=== PATIENT | female | born 1950 | race Caucasian/White ===

== ENCOUNTER 2019-01-15 20:22 | Emergency (ER) | payer MEDICARE ==
[2019-01-15] MEDS ORDERED: ASPIRIN 81 MG TABLET, CHEWABLE PO ONE (21:22)
[2019-01-15 21:55] LABS: ABSOLUTE BASOPHILS # (AUTO) 0.1 10^3/uL (0.0-0.2); ABSOLUTE EOSINOPHILS # (AUTO) 0.3 10^3/uL (0.0-0.6); ABSOLUTE MONOCYTES (AUTO) 0.5 10^3/uL (0.1-1.4); ABSOLUTE NEUT (AUTO) 4.3 10^3/uL (1.7-8.2); BASOPHILS % (AUTO) 0.7 % (0-2); EOSINOPHILS % (AUTO) 3.8 % (0-6); HEMATOCRIT 41.4 % (36.0-47.0); HEMOGLOBIN 13.8 g/dL (12.0-15.5); LYMPHOCYTES % (AUTO) 27.9 % (13-45); MEAN CORPUSCULAR HEMOGLOBIN 28.9 pg (27.0-33.4); MEAN CORPUSCULAR HGB CONC 33.4 g/dL (32.0-36.0); MEAN CORPUSCULAR VOLUME 86 fl (80-97); MONOCYTES % (AUTO) 7.1 % (3-13); PLATELET COUNT 174 10^3/uL (150-450); RED BLOOD COUNT 4.79 10^6/uL (3.72-5.28); SEGMENTED NEUTROPHILS % (AUTO) 60.5 % (42-78); TOTAL CELLS COUNTED % (AUTO) 100 %; WHITE BLOOD COUNT 7.1 10^3/uL (4.0-10.5)
[2019-01-15 22:01] LABS: APPEARANCE,URINE SLIGHTLY-CLOUDY; BILIRUBIN,URINE NEGATIVE (NEGATIVE); COLOR,URINE YELLOW; GLUCOSE, URINE >=500 mg/dL (NEGATIVE); KETONES,URINE NEGATIVE (NEGATIVE); LEUKOCYTE ESTERASE,URINE NEGATIVE (NEGATIVE); NITRITE,URINE NEGATIVE (NEGATIVE); PROTEIN,URINE NEGATIVE (NEGATIVE); URINE SPECIFIC GRAVITY 1.016
--- NOTE | 2019-01-15 22:22 | RADIOLOGY REPORT (SQ) ---
EXAM DESCRIPTION: XR CHEST 2 VIEWS COMPLETED DATE/TME: 01/15/2019 21:21 CLINICAL HISTORY: 68 years, Female, pain numbness right arm COMPARISON: None. NUMBER OF VIEWS: 2 TECHNIQUE: 2 view chest LIMITATIONS: None. FINDINGS: Heart size normal. Lungs clear. No pneumothorax. Underlying hyperinflation IMPRESSION: Hyperinflation/COPD copyright 2010 [employer]- All Rights Reserved
[2019-01-15 22:32] LABS: ALKALINE PHOSPHATASE 74 U/L (38-126); ANION GAP 8 (5-19); ASPARTATE AMINO TRANSFERASE 19 U/L (14-36); BILIRUBIN,DIRECT 0.3 mg/dL (0.0-0.4); BILIRUBIN,TOTAL 0.6 mg/dL (0.2-1.3); BLOOD UREA NITROGEN 18 mg/dL (7-20); CALCIUM 9.8 mg/dL (8.4-10.2); CARBON DIOXIDE 27 mmol/L (22-30); CHLORIDE 104 mmol/L (98-107); CREATINE KINASE 31 U/L (30-135); GLUCOSE 224 mg/dL (75-110); POTASSIUM 4.4 mmol/L (3.6-5.0); TOTAL PROTEIN 6.7 g/dL (6.3-8.2)
[2019-01-15 22:45] LABS: CREATINE KINASE MB < 0.22 ng/mL (<4.55); TROPONIN I < 0.012 ng/mL
[2019-01-16 01:28] VITALS: BP 151/63
[2019-01-16] MEDS ORDERED: HYDROCODONE/ACETAMINOPHEN 5-325 MG TABLET PO ONE (02:12)
[2019-01-16] MEDS ORDERED: DIAZEPAM 5 MG TABLET PO ONE (02:20)
--- NOTE | 2019-01-16 02:20 | ER Document Report ---
ED General - General Chief Complaint: Arm Pain Stated Complaint: NECK AND ARM PAIN Time Seen by Provider: 01/15/19 21:20 Primary Care Provider: MAIKEL MADRIGAL NP [Primary Care Provider] - Follow up as needed Mode of Arrival: Ambulatory Information source: Patient, Relative, [facility] Records Notes: 68-year-old female with congestive heart failure, hyperlipidemia, hypertension, type 2 diabetes presents with right arm pain that started at 8 AM. Patient states that she has had a continuous aching pain in her right shoulder that radiates to her right trapezius. Pain is worse with movement. She denies any injury. She denies any associated chest pain, shortness of breath, nausea. She states when the pain became bad she did become nauseous. She does have a history of cardiac stent placement approximately 10 years ago. She does take aspirin daily. She denies any recent illness. - HPI Onset: This morning Onset/Duration: Gradual, Constant, Persistent Quality of pain: Achy Severity: Moderate Pain Level: 2 Associated symptoms: Sweating. denies: Chest pain, Nonproductive cough, Productive cough, Fever, Headache, Leg swelling, Nausea, Vomiting, Shortness of breath Exacerbated by: Movement Relieved by: Remaining still Similar symptoms previously: No Recently seen / treated by doctor: No - Related Data Allergies/Adverse Reactions: penicillin V potassium [From Pen-Vee K] Allergy (Intermediate, Verified 05/21/11 21:58) resp distress Past Medical History - General Information source: Patient - Social History Smoking Status: Never Smoker Chew tobacco use (# tins/day): No Frequency of alcohol use: None Drug Abuse: None Lives with: Family Family History: Reviewed & Not Pertinent Patient has suicidal ideation: No Patient has homicidal ideation: No - Past Medical History Cardiac Medical History: Reports: Hx Congestive Heart Failure, Hx Hypercholesterolemia, Hx Hypertension Endocrine Medical History: Reports: Hx Diabetes Mellitus Type 2 Past Surgical History: Reports: Hx Cardiac Surgery - stent placed, Hx Cholecystectomy, Hx Tonsillectomy - Immunizations Hx Diphtheria, Pertussis, Tetanus Vaccination: Yes Review of Systems - Review of Systems Notes: REVIEW OF SYSTEMS: CONSTITUTIONAL : Denies fever, chills,. Denies recent illness. Denies weight loss, recent hospitalizations. EENT: Denies visual changes, eye pain. Denies sore throat, oral lesions, diff iculty swallowing. CARDIOVASCULAR: Denies chest pain. Denies palpitations. Denies lower extremity edema. RESPIRATORY: Denies cough. Denies shortness of breath, wheezing. GASTROINTESTINAL: Denies abdominal pain or distention. Denies nausea, vomiting, or diarrhea. Denies blood in vomitus, stools, or per rectum. Denies black, tarry stools. Denies constipation. GENITOURINARY: Denies difficulty urinating, painful urination, frequency, blood in urine, or vaginal discharge. MUSCULOSKELETAL: Denies back stiffness. + joint pain denies swelling. SKIN: Denies rash, lesions or sores. HEMATOLOGIC : Denies easy bruising or bleeding. LYMPHATIC: Denies swollen glands. NEUROLOGICAL: Denies confusion or altered mental status. Denies loss of consciousness. Denies dizziness or lightheadedness. Denies headache. Denies weakness or paralysis. Denies problems difficulty with ambulation, slurred speech. Denies sensory loss, numbness, or tingling. Denies seizures. PSYCHIATRIC: Denies anxiety or stress. Denies depression, suicidal ideation, or homicidal ideation. Denies visual or auditory hallucinations. Physical Exam - Vital signs Vitals: Temp Pulse Resp BP Pulse Ox 98.4 F 53 L 18 179/78 H 97 01/15/19 20:39 01/15/19 20:39 01/15/19 20:39 01/15/19 20:39 01/15/19 20:39 - Notes Notes: PHYSICAL EXAMINATION: GENERAL: Well-appearing, well-nourished and in no acute distress. HEAD: Atraumatic, normocephalic. EYES: Pupils equal round and reactive to light, extraocular movements intact, conjunctiva are normal. ENT: Nares patent, oropharynx clear without exudates. Moist mucous membranes. NECK: Normal range of motion, supple without lymphadenopathy LUNGS: Breath sounds clear to auscultation bilaterally and equal. No wheezes rales or rhonchi. HEART: Regular rate and rhythm without murmurs ABDOMEN: Soft, nontender, nondistended abdomen. No guarding, no rebound. No masses appreciated. Female : deferred Musculoskeletal: Normal range of motion, no pitting or edema. No cyanosis. NEUROLOGICAL: Cranial nerves grossly intact. Normal speech, normal gait. Normal sensory, motor exams PSYCH: Normal mood, normal affect. SKIN: Warm, Dry, normal turgor, no rashes or lesions noted. Course - Re-evaluation Re-evalutation: 01/16/19 02:15 Laboratory 01/15/19 01/15/19 01/15/19 21:22 21:22 21:22 WBC 7.1 RBC 4.79 Hgb 13.8 Hct 41.4 MCV 86 MCH 28.9 MCHC 33.4 RDW 15.0 H Plt Count 174 Lymph % (Auto) 27.9 [place] % (Auto) 7.1 Eos % (Auto) 3.8 Baso % (Auto) 0.7 Absolute Neuts (auto) 4.3 Absolute Lymphs (auto) 2.0 Absolute Monos (auto) 0.5 Absolute Eos (auto) 0.3 Absolute Basos (auto) 0.1 Seg Neutrophils % 60.5 Sodium 139.1 Potassium 4.4 Chloride 104 Carbon Dioxide 27 Anion Gap 8 BUN 18 Creatinine 1.02 Est GFR ( Amer) > 60 Est GFR (MDRD) Non-Af 54 L Glucose 224 H Calcium 9.8 Total Bilirubin 0.6 Direct Bilirubin 0.3 Neonat Total Bilirubin Not Reportable Neonat Direct Bilirubin Not Reportable Neonat Indirect Bili Not Reportable AST 19 ALT 14 Alkaline Phosphatase 74 Creatine Kinase 31 CK-MB (CK-2) < 0.22 Troponin I < 0.012 Total Protein 6.7 Albumin 4.0 Urine Color Urine Appearance Urine pH Ur Specific [place] Urine Protein Urine Glucose (UA) Urine Ketones Urine Blood Urine Nitrite Urine Bilirubin Urine Urobilinogen Ur Leukocyte Esterase Urine WBC (Auto) Urine RBC (Auto) Urine Bacteria (Auto) Squamous Epi Cells Auto Urine Ascorbic Acid 01/15/19 21:22 WBC RBC Hgb Hct MCV MCH MCHC RDW Plt Count Lymph % (Auto) [place] % (Auto) Eos % (Auto) Baso % (Auto) Absolute Neuts (auto) Absolute Lymphs (auto) Absolute Monos (auto) Absolute Eos (auto) Absolute Basos (auto) Seg Neutrophils % Sodium Potassium Chloride Carbon Dioxide Anion Gap BUN Creatinine Est GFR ( Amer) Est GFR (MDRD) Non-Af Glucose Calcium Total Bilirubin Direct Bilirubin Neonat Total Bilirubin Neonat Direct Bilirubin Neonat Indirect Bili AST ALT Alkaline Phosphatase Creatine Kinase CK-MB (CK-2) Troponin I Total Protein Albumin Urine Color YELLOW Urine Appearance SLIGHTLY-CLOUDY Urine pH 5.0 Ur Specific [place] 1.016 Urine Protein NEGATIVE Urine Glucose (UA) >=500 H Urine Ketones NEGATIVE Urine Blood NEGATIVE Urine Nitrite NEGATIVE Urine Bilirubin NEGATIVE Urine Urobilinogen 2.0 H Ur Leukocyte Esterase NEGATIVE Urine WBC (Auto) 1 Urine RBC (Auto) 0 Urine Bacteria (Auto) TRACE Squamous Epi Cells Auto 5 Urine Ascorbic Acid NEGATIVE Chest X-Ray 01/15/19 21:21 IMPRESSION: Hyperinflation/COPD copyright 2011 [employer]- All Rights Reserved Temp Pulse Resp BP Pulse Ox 97.6 F 49 L 18 151/63 H 98 01/16/19 00:50 01/16/19 01:24 01/16/19 01:24 01/16/19 01:24 01/16/19 01:24 Presentation of chest pain in an otherwise well appearing patient. Low clinical suspicion for ACS given clinical history, exam, EKG without ST elevations or depressions, and negative initial troponin. HEART score less than or equal to 3. PE also seems unlikely given clinical history, absence of tachycardia or dyspnea. Patient is PERC criteria negative. CXR without evidence of pneumothorax or pneumonia. No widened mediastinum. Aortic dissection also seems unlikely given history, symmetric pulses, CXR, and vitals. I did discuss delta troponin with the patient and her daughter who are declining at this time. Patient did receive Coello for her right shoulder pain. She does have increased tenacity of the right trapezius and tenderness with palpation. HEART Score: History-0 ECG-0 Age-1 Risk Factors-2 Troponin-0 Total: 3 Chest pain in a patient without evidence of cardiac or other serious etiology on workup today. I discussed with patient that, based on their age, risk factors an d emergency department testing today, the likelihood that their symptoms are related to a heart attack is very low (estimated risk of heart attack or over the next 30 days of less than 1%). The patient demonstrates decision making capacity and has verbalized an understanding of these risks to me. Based on this, the patient has chosen to follow-up as an outpatient. Usual chest pain return precautions reviewed. The patient states understanding and agreement with this plan. 01/16/19 02:16 - Vital Signs Vital signs: Temp Pulse Resp BP Pulse Ox 97.6 F 49 L 18 151/63 H 98 01/16/19 00:50 01/16/19 01:24 01/16/19 01:24 01/16/19 01:24 01/16/19 01:24 - Laboratory Result Diagrams: 01/15/19 21:22 01/15/19 21:22 Laboratory results interpreted by me: 01/15/19 01/15/19 01/15/19 21:22 21:22 21:22 RDW 15.0 H Est GFR (MDRD) Non-Af 54 L Glucose 224 H Urine Glucose (UA) >=500 H Urine Urobilinogen 2.0 H - Diagnostic Test Radiology reviewed: Image reviewed, Reports reviewed - EKG Interpretation by Me EKG shows normal: Sinus rhythm Rate: Normal [place]/QRS: RBBB Voltage: Consistant with LVH When compared to previous EKG there are: Previous EKG unavailable Discharge - Discharge Clinical Impression: Medication refill Shoulder pain Qualifiers: Chronicity: acute Laterality: right Qualified Code(s): M25.511 - Pain in right shoulder Cervical strain Qualifiers: Encounter type: initial encounter Qualified Code(s): S16.1XXA - Strain of muscle, fascia and tendon at neck level, initial encounter Condition: Good Disposition: HOME, SELF-CARE Instructions: Arm Pain, Nonspecific ([facility]), Neck Injury (Cervical Strain) ([facility]) Additional Instructions: You were seen today for arm pain. The exact cause of your pain is unclear. However, based on your cardiac enzyme testing, chest x-ray, and EKG it does not appear that it is from an immediately life-threatening cause at this time. Although your testing here is normal is critical that you follow-up with your primary care physician for continued evaluation of this chest pain and possible stress testing. I recommended you see your physician within the next 24-48 hours to be evaluated for consideration of a stress test. Please return to emergency department immediately if you have worsening of your chest pain, shortness of breath, vomiting, become unable to exert yourself due to pain or difficulty breathing, you pass out, or have any pain that radiates into your arms, jaw, or back. Please also return if you have any additional symptoms that are concerning to you. Recommendations: It is recommended to followup with a primary care doctor within the next 2 days. If you do not have a primary care doctor or you are unable to get an apointment during that time, I left the number for some internal medicine physicians that are affiliated with this [facility]. Dr. Ryan Panda [address], [place] [phone] Figueroa Address: [address] [place] [address] Dr Quick Address: [address] , [place] [address] Follow up with your [id number] hours for further care or return to the ED IMMEDIATELY if symptoms worsen or you have any concerns. If you cannot afford to follow up with your primary care physician a list of low cost clinics have been provided at the end of your discharge papers as well. Most prescribed medications have multiple side effects. The safest thing to do is when filling your prescription speak to your pharmacist regarding possible interactions with your normal home medications and over the counter medications such as Ibuprofen, Tylenol, Benadryl. If you experience any symptoms that cause you discomfort or concern you should discontinue the medication immediately and return to the emergency room or call your primary care physician. Prescriptions: Olmesartan/Hydrochlorothiazide [Benicar Hct 40-12.5 mg Tablet] 1 each PO DAILY #30 tablet Insulin Glargine,Hum.rec.anlog [Lantus Insulin 100 Unit/1 ml 10 ml] 70 unit SUBCUT BID #5 vial Metoprolol Succinate [Toprol Xl 50 mg Tab.sr] 50 mg PO DAILY #30 tab.sr.24h Referrals: MAIKEL MADRIGAL, TONY [Primary Care Provider] - Follow up as needed
--- NOTE | 2019-01-16 19:07 | EKG REPORT ---
SEVERITY:- ABNORMAL ECG - SINUS RHYTHM RIGHT BUNDLE BRANCH BLOCK PROBABLE LEFT VENTRICULAR HYPERTROPHY : Confirmed by: Lazaro Hickey 16-Jan-2019 19:07:18
== END 2019-01-16 03:59 | disposition home or self-care (01) ==
LOC: ER 20:22
DX: M25.511 Pain in right shoulder (principal); S16.1XXA Strain of muscle, fascia and tendon at neck level, initial encounter; X58.XXXA Exposure to other specified factors, initial encounter; M79.601 Pain in right arm; R61 Generalized hyperhidrosis; I10 Essential (primary) hypertension; E11.9 Type 2 diabetes mellitus without complications; J44.9 Chronic obstructive pulmonary disease, unspecified; I45.10 Unspecified right bundle-branch block; Z76.0 Encounter for issue of repeat prescription; Z79.82 Long term (current) use of aspirin; Z88.0 Allergy status to penicillin; Z95.5 Presence of coronary angioplasty implant and graft
CPT/HCPCS: 93005; 99284; 36415; 82553; 82550; 85025; 80053; 81001; 84484; 71046; 93010; A9270 ×3

== ENCOUNTER 2019-04-27 09:31 | Emergency (ER) | payer MEDICARE ==
[2019-04-27] MEDS ORDERED: NYSTATIN/TRIAMCIN OINTMENT 15 GM TP ONE (10:11)
--- NOTE | 2019-04-27 10:11 | ER Document Report ---
ED Medical Screen (RME) - General Chief Complaint: Cough Stated Complaint: COUGH/POSSIBLE UTI Time Seen by Provider: 04/27/19 10:09 Primary Care Provider: MAIKEL MADRIGAL NP [Primary Care Provider] - Follow up as needed Mode of Arrival: Ambulatory Information source: Patient Notes: 68-year-old female presents to ED for urinary tract infection symptoms frequency urgency burning and burning rash under both breast. Will order some Mycolog cream for the breast at this time ordered a urine get some blood work as she is diabetic. Her sugars have been running in the 180s even taking her medications. Patient is alert oriented respirations regular nonlabored speaking in full sentences. I have greeted and performed a rapid initial assessment of this patient. A comprehensive ED assessment and evaluation of the patient, analysis of test results and completion of medical decision making process will be conducted by an additional ED providers. - Related Data Allergies/Adverse Reactions: penicillin V potassium [From Pen-Vee K] Allergy (Intermediate, Verified 04/27/19 10:04) resp distress Past Medical History - Past Medical History Cardiac Medical History: Reports: Hx Congestive Heart Failure, Hx Hypercholesterolemia, Hx Hypertension Endocrine Medical History: Reports: Hx Diabetes Mellitus Type 2 Past Surgical History: Reports: Hx Cardiac Surgery - stent placed, Hx Cholecystectomy, Hx Tonsillectomy - Immunizations Hx Diphtheria, Pertussis, Tetanus Vaccination: Yes Physical Exam - Vital signs Vitals: Temp Pulse Resp BP Pulse Ox 98.0 F 82 16 154/72 H 96 04/27/19 09:40 04/27/19 09:40 04/27/19 09:40 04/27/19 09:40 04/27/19 09:40 Course - Vital Signs Vital signs: Temp Pulse Resp BP Pulse Ox 98.0 F 82 16 154/72 H 96 04/27/19 09:40 04/27/19 09:40 04/27/19 09:40 04/27/19 09:40 04/27/19 09:40 Doctor's Discharge - Discharge Referrals: MAIKEL MADRIGAL NP [Primary Care Provider] - Follow up as needed
[2019-04-27 10:47] LABS: APPEARANCE,URINE CLOUDY; BILIRUBIN,URINE NEGATIVE (NEGATIVE); GLUCOSE, URINE 50 mg/dL (NEGATIVE); KETONES,URINE TRACE mg/dL (NEGATIVE); PROTEIN,URINE 30 mg/dL (NEGATIVE); URINE SPECIFIC GRAVITY 1.018; UROBILINOGEN,URINE NEGATIVE mg/dL (<2.0)
[2019-04-27 10:50] LABS: COLOR,URINE DARK YELLOW
[2019-04-27 10:50] LABS: ABSOLUTE EOSINOPHILS # (AUTO) 0.1 10^3/uL (0.0-0.6); ABSOLUTE LYMPHOCYTES (AUTO) 1.3 10^3/uL (0.5-4.7); ABSOLUTE MONOCYTES (AUTO) 0.5 10^3/uL (0.1-1.4); ABSOLUTE NEUT (AUTO) 5.2 10^3/uL (1.7-8.2); BASOPHILS % (AUTO) 0.4 % (0-2); EOSINOPHILS % (AUTO) 0.8 % (0-6); HEMATOCRIT 40.7 % (36.0-47.0); HEMOGLOBIN 13.7 g/dL (12.0-15.5); LYMPHOCYTES % (AUTO) 18.3 % (13-45); MEAN CORPUSCULAR HEMOGLOBIN 28.6 pg (27.0-33.4); MEAN CORPUSCULAR HGB CONC 33.6 g/dL (32.0-36.0); MEAN CORPUSCULAR VOLUME 85 fl (80-97); MONOCYTES % (AUTO) 7.7 % (3-13); PLATELET COUNT 166 10^3/uL (150-450); RED BLOOD COUNT 4.78 10^6/uL (3.72-5.28); RED CELL DISTRIBUTION WIDTH 14.7 % (11.5-14.0); SEGMENTED NEUTROPHILS % (AUTO) 72.8 % (42-78); TOTAL CELLS COUNTED % (AUTO) 100 %; WHITE BLOOD COUNT 7.2 10^3/uL (4.0-10.5)
[2019-04-27 11:09] LABS: ALKALINE PHOSPHATASE 78 U/L (38-126); ANION GAP 10 (5-19); ASPARTATE AMINO TRANSFERASE 20 U/L (14-36); BILIRUBIN,DIRECT 0.2 mg/dL (0.0-0.4); BILIRUBIN,TOTAL 1.4 mg/dL (0.2-1.3); BLOOD UREA NITROGEN 26 mg/dL (7-20); CALCIUM 9.4 mg/dL (8.4-10.2); CARBON DIOXIDE 29 mmol/L (22-30); CHLORIDE 98 mmol/L (98-107); GLUCOSE 159 mg/dL (75-110); POTASSIUM 4.3 mmol/L (3.6-5.0); TOTAL PROTEIN 7.3 g/dL (6.3-8.2)
[2019-04-27] MEDS ORDERED: NYSTATIN TOPICAL POWDER 15 GM TP ONE (11:09)
[2019-04-27] MEDS ORDERED: CEFTRIAXONE 1 GM/D5W RTU 1 GM/50 ML RTUPB IV ONE (11:10)
[2019-04-27] MEDS ORDERED: FLUCONAZOLE 100 MG TABLET PO ONE (11:10)
--- NOTE | 2019-04-27 11:11 | ER Document Report ---
ED GI/ - General Chief Complaint: Vaginal Discharge Stated Complaint: COUGH/POSSIBLE UTI Time Seen by Provider: 04/27/19 10:09 Primary Care Provider: MAIKEL MADRIGAL, TONY [ALLIED HEALTH PROFESSIONAL] - Follow up as needed Mode of Arrival: Ambulatory Notes: Ms. Bhatia is a 68-year-old female with past medical history of hypertension, hyperlipidemia, and diabetes presenting to the ED for a rash underneath her breast as well as a vaginal rash. Patient states that she thought that she had a yeast infection so she has been using [id number] cold Metrazol cream without any relief. She also believes that she is developing a urinary tract infection as within the past day or 2 she started having burning with urination and increased frequency. Patient states that she became concerned when her underside of the left breast became red, erythematous and somewhat tender to palpation. The right breast underside just became erythematous this morning. Patient states that her glucoses have been running well recently ranging from 150-200. She denies any fever, chills, chest pain, cough, abdominal pain, vomiting or diarrhea. - Related Data Allergies/Adverse Reactions: penicillin V potassium [From Pen-[employer]] Allergy (Intermediate, Verified 04/27/19 10:04) resp distress Past Medical History - General Information source: Patient - Social History Smoking Status: Never Smoker Family History: Reviewed & Not Pertinent Patient has suicidal ideation: No Patient has homicidal ideation: No - Past Medical History Cardiac Medical History: Reports: Hx Congestive Heart Failure, Hx Hypercholesterolemia, Hx Hypertension Endocrine Medical History: Reports: Hx Diabetes Mellitus Type 2 Past Surgical History: Reports: Hx Cardiac Surgery - stent placed, Hx Cholecystectomy, Hx Tonsillectomy - Immunizations Hx Diphtheria, Pertussis, Tetanus Vaccination: Yes Review of Systems - Review of Systems Constitutional: See HPI EENT: No symptoms reported Cardiovascular: No symptoms reported Respiratory: No symptoms reported Gastrointestinal: No symptoms reported Genitourinary: See HPI Female Genitourinary: No symptoms reported Musculoskeletal: No symptoms reported Skin: See HPI Hematologic/Lymphatic: No symptoms reported Neurological/Psychological: No symptoms reported Physical Exam - Vital signs Vitals: Temp Pulse Resp BP Pulse Ox 98.0 F 82 16 154/72 H 96 04/27/19 09:40 04/27/19 09:40 04/27/19 09:40 04/27/19 09:40 04/27/19 09:40 Interpretation: Hypertensive - General General appearance: Appears well, Alert - HEENT Head: Normocephalic, Atraumatic Eyes: Normal Pupils: PERRL - Respiratory Respiratory status: No respiratory distress Chest status: Nontender Breath sounds: Normal Chest palpation: Normal - Cardiovascular Rhythm: Regular Heart sounds: Normal auscultation Murmur: No - Abdominal Inspection: Normal Distension: No distension Bowel sounds: Normal Tenderness: Nontender Organomegaly: No organomegaly - Back Back: Normal, Nontender - Extremities General upper extremity: Normal inspection, Nontender, Normal color, Normal ROM, Normal temperature General lower extremity: Normal inspection, Nontender, Normal color, Normal ROM, Normal temperature, Normal weight bearing. No: Neela's sign - Neurological Neuro grossly intact: Yes Cognition: Normal Orientation: AAOx4 [place] Coma Scale Eye Opening: Spontaneous [place] Coma Scale Verbal: Oriented [place] Coma Scale Motor: Obeys Commands Jo[place]quin Coma Scale Total: 15 Speech: Normal Motor strength normal: LUE, RUE, LLE, RLE Sensory: Normal - Psychological Associated symptoms: Normal affect, Normal mood - Skin Skin Temperature: Warm Skin Moisture: Dry Skin Color: Normal Skin irregularity: Erythema, Rash Location of irregularity: Chest - Underside of both breasts, worse under her left breast in comparison to the right. Rash is erythematous, moist, tender to palpation, with foul smell., Other - Entire groin underneath the pannus, between bilateral thighs and external vulva is erythematous, foul-smelling with moist yellow/green cheesy discharge Character of irregularity: Confluent, Erythematous Irregularity with: Tenderness Course - Re-evaluation Re-evalutation: Patient is uncomfortable appearing but nontoxic. Initial vitals notable for mildly elevated blood pressure. Differential diagnosis includes UTI, yeast infection, superficial candidiasis of the skin, cellulitis seems less likely) 04/27/19 11:21 Patient has extensive yeast infection both underneath the left breast, mildly developing under the right breast and extensively in the groin. Will administer nystatin powder to help dry out the rash after appropriately cleansing it with moist towelettes and allowing the area to dry. Patient will also be given Diflucan p.o. given the severity of rash. 04/27/19 11:28 CBC does not show significant leukocytosis or left shift. H&H is stable. CMP shows creatinine of 1.71 with a BUN of 26 consistent with dehydration. GFR is low today at 30. Glucose is stable at 159. Total bili is mildly elevated at 1.4. UA is consistent with a significant UTI positive for both leukocyte esterase and nitrites with greater than 182 WBCs and only 5 squamous cells. Patient ordered for ceftriaxone as well as 1 L of fluids which will be administered slowly. 04/27/19 16:33 Patient now mentions that she has had nasal stuffiness, sneezing and cough. Will obtain x-ray as well as flu swab. She did indicate that she got a flu vaccine for all months ago. Patient has small amount of expiratory wheezes and a nonproductive dry cough in the room. Will give DuoNeb. Influenza a and B are both negative. Chest x-ray shows evidence of COPD exacerbation. Patient is a remote smoker. Patient felt improved after duo nebs. Given Solu-Medrol as well. Patient will be discharged with prednisone p.o. patient recommended to continue using the nystatin powder as an outpatient. She was also provided with the remaining course of Keflex after the ceftriaxone for her UTI. Patient recommended she use the Diflucan again at the end of her Keflex but she was provided with several days. Patient given return precautions and instructed to try to keep the groin and area underneath the breast dry as well as possible to avoid these infection from worsening. - Vital Signs Vital signs: Temp Pulse Resp BP Pulse Ox 98.6 F 90 18 150/49 H 96 04/27/19 18:40 04/27/19 18:40 04/27/19 18:40 04/27/19 18:40 04/27/19 18:40 - Laboratory Result Diagrams: 04/27/19 10:22 04/27/19 10:22 Laboratory results interpreted by me: 04/27/19 04/27/19 04/27/19 10:00 10:22 10:22 RDW 14.7 H Sodium 136.9 L BUN 26 H Creatinine 1.71 H Est GFR ( Amer) 36 L Est GFR (MDRD) Non-Af 30 L Glucose 159 H POC Glucose Total Bilirubin 1.4 H Urine Protein 30 H Urine Glucose (UA) 50 H Urine Ketones TRACE H Urine Blood SMALL H Urine Nitrite (Reflex) POSITIVE H Leukocyte Esterase Rfl LARGE H 04/27/19 10:49 RDW Sodium BUN Creatinine Est GFR ( Amer) Est GFR (MDRD) Non-Af Glucose POC Glucose 152 H Total Bilirubin Urine Protein Urine Glucose (UA) Urine Ketones Urine Blood Urine Nitrite (Reflex) Leukocyte Esterase Rfl Discharge - Discharge Clinical Impression: Dehydration, Jacqueline vaginitis, Candidal skin infection, COPD exacerbation UTI (urinary tract infection) Qualifiers: Urinary tract infection type: site unspecified Hematuria presence: with hematuria Qualified Code(s): N39.0 - Urinary tract infection, site not specified; R31.9 - Hematuria, unspecified Condition: Good Disposition: HOME, SELF-CARE Instructions: Cephalexin ([facility]), Dehydration ([facility]), Urinary Tract Infection ([facility]) Additional Instructions: It is important that you take the full course of antibiotics as prescribed. I have also prescribed you for Diflucan to help treat the yeast infection that is both underneath the breast and in the groin. I would also recommend that you continue using the powder antifungal medication underneath your breast as well as in the groin. It is important that you bathe first, completely dry off with a towel make sure the area is nice and dry before you start applying the nystatin powder. If you notice any worsening lightheadedness, fever, or any other concerning symptoms, return to the ED for further evaluation. I would also recommend that you drink fluids regularly as you were dehydrated today. I would recommend that you also take the prednisone for the next 4 days to help with your breathing and cough. Prescriptions: Prednisone [Deltasone 20 mg Tablet] 3 tab PO DAILY 4 Days #12 tablet Fluconazole [Diflucan] 100 mg PO DAILY #6 tablet Cephalexin Monohydrate [Keflex 500 mg Capsule] 500 mg PO Q6H 6 Days #24 capsule Nystatin 50,000,000 unit MC TID #100 powder.ea. Referrals: MAIKEL MADRIGAL, TONY [ALLIED HEALTH PROFESSIONAL] - Follow up as needed
[2019-04-27] MEDS ORDERED: NORMAL SALINE 1000 ML 1,000 ML IV ONE (12:11)
[2019-04-27] MEDS ORDERED: NORMAL SALINE 500 ML IV ONE (15:50)
[2019-04-27] MEDS ORDERED: IPRATROPIUM/ALBUTEROL 0.5-2.5 MG/3 ML AMPUL NEB ONE (16:34)
--- NOTE | 2019-04-27 17:04 | RADIOLOGY REPORT (SQ) ---
EXAM DESCRIPTION: CHEST 2 VIEWS COMPLETED DATE/TIME: 04/27/2019 4:45 pm REASON FOR STUDY: cough COMPARISON: 01/15/2019 NUMBER OF VIEWS: Two view. TECHNIQUE: Frontal and lateral radiographic views of the chest acquired. LIMITATIONS: None. FINDINGS: LUNGS AND PLEURA: No opacities, masses or pneumothorax. No pleural effusion. Attenuated bl ood vessels and flattened kiarra-diaphragms. MEDIASTINUM AND HILAR STRUCTURES: No masses. No contour abnormalities. HEART AND VASCULAR STRUCTURES: Heart normal in size and contour. No evidence for failure. BONES: No acute findings. HARDWARE: None in the chest. OTHER: No other significant finding. IMPRESSION: COPD. NO ACUTE RADIOGRAPHIC FINDING IN THE CHEST. TECHNICAL DOCUMENTATION: JOB ID: [id number] [employer]- All Rights Reserved Reading location - IP/workstation name: [email or web address]
[2019-04-27] MEDS ORDERED: METHYLPREDNISOLONE INJ 125 MG/2 ML SDV IV ONE (17:26)
[2019-04-27 18:16] LABS: A TYPE INFLUENZA AG NEGATIVE (NEGATIVE); B INFLUENZA AG NEGATIVE (NEGATIVE)
[2019-04-27 18:46] VITALS: BP 150/49
== END 2019-04-27 18:40 | disposition home or self-care (01) ==
LOC: ER 09:31
DX: B37.3 Candidiasis of vulva and vagina (principal); B37.2 Candidiasis of skin and nail; N39.0 Urinary tract infection, site not specified; R31.9 Hematuria, unspecified; E86.0 Dehydration; J44.1 Chronic obstructive pulmonary disease with (acute) exacerbation; R06.7 Sneezing; R09.89 Other specified symptoms and signs involving the circulatory and respiratory systems; R05 Cough; I10 Essential (primary) hypertension; E11.9 Type 2 diabetes mellitus without complications; Z88.0 Allergy status to penicillin
CPT/HCPCS: 94640; 99283; 96361; 96375; 96365; 36415; 82962; 83690; 85025; 80053; 81001; 87804; 71046; A9270 ×4; J2930; J7030; J7040; J0696; J3490; J7620

== ENCOUNTER 2019-10-06 21:20 | Emergency (ER) | payer MEDICARE ==
[2019-10-06] MEDS ORDERED: KETOROLAC TROMETHAMINE 60 MG/2 ML SDV IM ONE (23:41)
--- NOTE | 2019-10-06 23:47 | ER Document Report ---
ED Oral Problem - General Chief Complaint: Mouth Problem Stated Complaint: MOUTH SWELLING/PAIN Time Seen by Provider: 10/06/19 23:39 Primary Care Provider: Bharath [facility] [Provider Group] - Follow up as needed Mode of Arrival: Ambulatory Information source: Patient Notes: Patient is a 68-year-old female comes to the emergency room complaining of swel ling to her right lower jaw. States it started approximately 48 hours ago. She states she does have a history of bad teeth. She is been taken Tylenol to 500 mg tablets every 6 hours for the last 48 hours. Patient has a past pertinent history for hypertension and a heart stent placement. She also is an insulin- dependent diabetic. TRAVEL OUTSIDE OF THE [place] IN LAST 30 DAYS: No - HPI Patient complains to provider of: Jaw pain, Toothache Onset: Yesterday Onset: Gradual Quality of pain: Sharp, Stabbing, Throbbing Severity: Moderate Pain Level: 4 Sore throat: Moderate Swollen jaw/face: Moderate Associated symptoms: Dental decay, Drainage, Jaw pain, Toothache Worsened by: Cold Relieved by: Tylenol seems to help some. Similar symptoms previously: No Recently seen / treated by doctor/dentist: No - Related Data Allergies/Adverse Reactions: penicillin V potassium [From [facility]] Allergy (Intermediate, Verified 04/27/19 10:04) resp distress Home Medications: [email or web address] Past Medical History - General Information source: Patient - Social History Smoking Status: Never Smoker Cigarette use (# per day): No Chew tobacco use (# tins/day): No Smoking Education Provided: No Frequency of alcohol use: None Drug Abuse: None Occupation: Dispatcher for [employer] Lives with: Family Family History: Reviewed & Not Pertinent Patient has suicidal ideation: No Patient has homicidal ideation: No - Past Medical History Cardiac Medical History: Reports: Hx Congestive Heart Failure, Hx Hypercholesterolemia, Hx Hypertension Endocrine Medical History: Reports: Hx Diabetes Mellitus Type 2 Past Surgical History: Reports: Hx Cardiac Surgery - stent placed, Hx Cholecystectomy, Hx Tonsillectomy - Immunizations Hx Diphtheria, Pertussis, Tetanus Vaccination: Yes Review of Systems - Review of Systems Constitutional: denies: Fever EENT: Mouth swelling, Dental problem Cardiovascular: No symptoms reported Respiratory: No symptoms reported Gastrointestinal: No symptoms reported Genitourinary: No symptoms reported Female Genitourinary: No symptoms reported Musculoskeletal: No symptoms reported Skin: No symptoms reported Hematologic/Lymphatic: No symptoms reported Neurological/Psychological: No symptoms reported -: Yes All other systems reviewed and negative Physical Exam - Vital signs Vitals: Temp Pulse Resp BP Pulse Ox 99.5 F 58 L 16 160/76 H 97 10/06/19 21:39 10/06/19 21:39 10/06/19 21:39 10/06/19 21:39 10/06/19 21:39 Interpretation: Hypertensive - Notes Notes: PHYSICAL EXAMINATION: GENERAL: Well-appearing, well-nourished and in no acute distress. But does appear somewhat uncomfortable. HEAD: Atraumatic, normocephalic. EYES: Pupils equal round and reactive to light, extraocular movements intact, conjunctiva are normal. ENT: Examination patient's area concern is her oral cavity. Examination of oral cavity shows severe dental deterioration throughout the mouth. Patient's primary concern is her right lower jaw running around to the midportion of the chin. There is mild erythema noted but there is no fluctuance noted. Examination into the oral cavity in the area between the lip and gums show that its approximately tooth #29. Noted also is minor amount of tenderness to palpation to the same tooth area with some oozing up when pressure is applied to the tooth. LUNGS: Breath sounds clear to auscultation bilaterally and equal. No wheezes rales or rhonchi. HEART: Regular rate and rhythm without murmurs Musculoskeletal: Normal range of motion, no pitting or edema. No cyanosis. PSYCH: Normal mood, normal affect. SKIN: Warm, Dry, normal turgor, no rashes or lesions noted. Course - Re-evaluation Re-evalutation: 10/06/19 23:47 Patient apparently has an infected tooth #29. We will place her on some clindamycin since she has allergies to penicillin. We also give her a Diflucan pill for possible yeast infection developed after the antibiotic use. - Vital Signs Vital signs: Temp Pulse Resp BP Pulse Ox 99.5 F 58 L 16 160/76 H 97 10/06/19 23:35 10/06/19 21:39 10/06/19 21:39 10/06/19 21:39 10/06/19 21:39 Discharge - Discharge Clinical Impression: Dental infection Condition: Stable Disposition: HOME, SELF-CARE Instructions: Dental Infection or Abscess ([facility]) Additional Instructions: Home and rest. Medications prescribed. As we discussed you can take Tylenol and ibuprofen together you can take 600 mg of ibuprofen along with thousand milligrams of Tylenol every 8 hours which should help with the pain and discomfort. Also use warm compresses on the outside area of the jaw and warm salt water swishes inside. Highly recommend you contact the dentist soon as possible. Prescriptions: Clindamycin HCl 300 mg PO QID #40 capsule Fluconazole [Diflucan] 150 mg PO ONCE PRN #1 tablet PRN Reason: Forms: Elevated Blood Pressure, Return to Work Referrals: [facility] [Provider Group] - Follow up as needed
[2019-10-06] MEDS ORDERED: CLINDAMYCIN HCL 150 MG CAPSULE PO ONE (23:57)
[2019-10-07 04:34] VITALS: BP 186/76
== END 2019-10-07 00:10 | disposition home or self-care (01) ==
LOC: ER 21:20
DX: K04.7 Periapical abscess without sinus (principal); R68.84 Jaw pain; I50.9 Heart failure, unspecified; E78.00 Pure hypercholesterolemia, unspecified; I11.0 Hypertensive heart disease with heart failure; E11.9 Type 2 diabetes mellitus without complications; Z90.49 Acquired absence of other specified parts of digestive tract; Z79.02 Long term (current) use of antithrombotics/antiplatelets
CPT/HCPCS: 99282; 96372; A9270; J1885